=== PATIENT | male | born 1980 | race Caucasian/White ===

== ENCOUNTER 2018-08-14 13:48 | Emergency (ER) | payer SELFPAY ==
--- NOTE | 2018-08-14 22:55 | EKG REPORT ---
SEVERITY:- NORMAL ECG - SINUS RHYTHM : Confirmed by: Amelia Gibbs MD 14-Aug-2018 22:53:55
== END 2018-08-14 15:15 | disposition left against medical advice (07) ==
LOC: ER 13:48
DX: Z53.21 Procedure and treatment not carried out due to patient leaving prior to being seen by health care provider (principal)
CPT/HCPCS: 93005; 93010